=== PATIENT | female | born 1935 | race Caucasian/White ===

== ENCOUNTER 2017-11-26 12:35 | Day surgery (SDC) | payer MEDICARE ==
[~2017-11-26] VITALS: Ht 160 cm; Wt 90.5 kg
[2017-11-26 12:50] VITALS: BP 159/87
[2017-11-26] MEDS ORDERED: FLUO10CA28 PO (13:00)
[2017-11-26] MEDS ORDERED: FURO-150 PO (13:03)
[2017-11-26] MEDS ORDERED: METF850T PO (13:04)
[2017-11-26] MEDS ORDERED: IRBE150T27 PO (13:04)
[2017-11-26] MEDS ORDERED: ACET-812 PO (13:05)
[2017-11-26] MEDS ORDERED: ASPI-611 PO (13:06)
[2017-11-26] MEDS ORDERED: MULT-1085 PO (13:07)
[2017-11-26] MEDS ORDERED: BETA1TAB20 PO (13:07)
[2017-11-26] MEDS ORDERED: fentaNYL/PF 50MCG/1 ML 2ML syringe ONE (13:15)
[2017-11-26] MEDS ORDERED: MIDAZolam 5mg/5ml vial ONE (13:16)
[2017-11-26 13:52] VITALS: BP 154/57
[2017-11-26 13:57] VITALS: BP 137/45
== END 2017-11-26 14:12 | disposition home or self-care (01) ==
LOC: GI LAB 12:35
PROVIDERS: ATTEND Internal Medicine Gastroenterology
DX: K92.1 Melena (principal); E11.9 Type 2 diabetes mellitus without complications; Z79.82 Long term (current) use of aspirin; Z79.84 Long term (current) use of oral hypoglycemic drugs; Z88.2 Allergy status to sulfonamides; Z90.49 Acquired absence of other specified parts of digestive tract; Z96.653 Presence of artificial knee joint, bilateral; Z90.12 Acquired absence of left breast and nipple; Z85.3 Personal history of malignant neoplasm of breast; Z79.899 Other long term (current) drug therapy
CPT/HCPCS: 45330; G0500; J2250; J3010; J7030; A4620

== ENCOUNTER 2021-11-15 09:29 | Outpatient (CLI) | payer MEDICARE ==
[~2021-11-15 09:29] MED LIST: ACET-812 PO; ASPI-611 PO; BETA1TAB20 PO; FLUO10CA28 PO; FURO-150 PO; IRBE150T24 PO; METF850T PO; MULT-1085 PO
[2021-11-15 10:10] LABS: BASOPHILS % (AUTO) 0.7 % (0-1); EOSINOPHILS # (AUTO) 0.1 X10'3 (0-0.9); EOSINOPHILS % (AUTO) 2.1 % (0-6); HEMATOCRIT 37.8 % (35.0-45.0); HEMOGLOBIN 12.1 g/dl (12.0-16.0); LYMPHOCYTES # (AUTO) 1.3 X10'3 (1.1-4.8); MEAN CORPUSCULAR HEMOGLOBIN 27.9 PG (27.0-31.0); MEAN CORPUSCULAR HGB CONC 32.1 g/dL (33.0-36.5); MEAN CORPUSCULAR VOLUME 87.1 FL (78-98); MEAN PLATELET VOLUME 8.3 FL (7.4-10.4); MONOCYTES # (AUTO) 0.4 X10'3 (0-0.9); MONOCYTES % (AUTO) 6.3 % (2-12); NEUTROPHILS # (AUTO) 5.1 X10'3 (1.8-7.7); NEUTROPHILS % (AUTO) 71.9 % (42-75); PLATELET COUNT 240 X10'3 (140-440); RED BLOOD COUNT 4.34 X10'6 (4.20-5.60); RED CELL DISTRIBUTION WIDTH 14.4 % (11.5-14.5); WHITE BLOOD COUNT 7.1 X10'3 (4.5-11.0)
[2021-11-15 10:24] LABS: ALANINE AMINOTRANSFERASE 33 U/L (12-78); ALBUMIN 3.5 G/DL (3.4-5.0); ALKALINE PHOSPHATASE 79 IU/L (46-116); ANION GAP 2 (8-16); ASPARTATE AMINO TRANSFERASE 26 U/L (10-37); BILIRUBIN,TOTAL 0.3 MG/DL (0.1-1.0); BLOOD UREA NITROGEN 21 MG/DL (7-18); BUN/CREATININE RATIO 23.6 (6.6-38.0); CALCIUM 8.9 MG/DL (8.5-10.1); CHLORIDE 103 MMOL/L (99-107); CREATININE 0.89 MG/DL (0.40-0.90); GLUCOSE 216 MG/DL (70-104); POTASSIUM 4.1 MMOL/L (3.5-5.1); SODIUM 134 MMOL/L (135-145); TOTAL PROTEIN 6.9 G/DL (6.4-8.2); eGFR 60 ML/MIN
[2021-11-15 10:27] LABS: APTT 25 SECONDS (22-32)
[2021-11-15] MEDS ORDERED: IODIXANOL 320 MG/ML INFUS..BTL 50ML IV ONE ×2 (11:19)
[2021-11-15] MEDS ORDERED: IODIXANOL 320 MG/ML INFUS..BTL 100ML IV ONE (11:19)
== END 2021-11-15 23:59 | disposition home or self-care (01) ==
LOC: RAD 09:29
PROVIDERS: ATTEND Internal Medicine Cardiovascular Disease
DX: I65.23 Occlusion and stenosis of bilateral carotid arteries (principal); K57.10 Diverticulosis of small intestine without perforation or abscess without bleeding; K76.0 Fatty (change of) liver, not elsewhere classified; I71.4 Abdominal aortic aneurysm, without rupture; M47.819 Spondylosis without myelopathy or radiculopathy, site unspecified; E27.8 Other specified disorders of adrenal gland; K86.89 Other specified diseases of pancreas; I70.0 Atherosclerosis of aorta; I25.10 Atherosclerotic heart disease of native coronary artery without angina pectoris; E04.9 Nontoxic goiter, unspecified; I35.0 Nonrheumatic aortic (valve) stenosis; R06.02 Shortness of breath; I65.29 Occlusion and stenosis of unspecified carotid artery; Z20.822 Contact with and (suspected) exposure to COVID-19; Z90.710 Acquired absence of both cervix and uterus; Z90.49 Acquired absence of other specified parts of digestive tract
CPT/HCPCS: 36415; 71046; 71275; 74174; 80053; 85025; 85610; 85730; 87635; 93880; 94010; 94727; 94729; C9803; Q9967

== ENCOUNTER 2021-12-07 07:30 | Inpatient (IN) | payer MEDICARE ==
[2021-12-04 10:53] LABS: CLARITY,URINE CLEAR (Clear); COLOR,URINE YELLOW (Yellow); GLUCOSE, URINE NEGATIVE (Neg); KETONES,URINE NEGATIVE (Neg); LEUKOCYTE ESTERASE ,URINE NEGATIVE (Neg); NITRITES, URINE NEGATIVE (Neg); OCCULT BLOOD,URINE NEGATIVE (Neg); PH,URINE 5.5 (4.8-8.0); PROTEIN,URINE NEGATIVE (Neg); UROBILINOGEN,URINE 0.2 E.U/dL (0.2-1.0)
[2021-12-04 10:54] LABS: BASOPHILS # (AUTO) 0.1 X10'3 (0-0.2); EOSINOPHILS # (AUTO) 0.1 X10'3 (0-0.9); EOSINOPHILS % (AUTO) 1.6 % (0-6); LYMPHOCYTES # (AUTO) 1.4 X10'3 (1.1-4.8); LYMPHOCYTES % (AUTO) 19.9 % (21-51); MEAN CORPUSCULAR HEMOGLOBIN 28.4 PG (27.0-31.0); MEAN CORPUSCULAR HGB CONC 32.8 g/dL (33.0-36.5); MEAN CORPUSCULAR VOLUME 86.4 FL (78-98); MEAN PLATELET VOLUME 8.2 FL (7.4-10.4); MONOCYTES # (AUTO) 0.6 X10'3 (0-0.9); MONOCYTES % (AUTO) 8.1 % (2-12); NEUTROPHILS # (AUTO) 4.8 X10'3 (1.8-7.7); NEUTROPHILS % (AUTO) 69.4 % (42-75); PRE OP HEMATOCRIT 38.4 % (35.0-45.0); PRE OP HEMOGLOBIN 12.6 g/dL (12.0-16.0); PRE OP PLATELET COUNT 259 X10'3 (140-440); RED BLOOD COUNT 4.44 X10'6 (4.20-5.60); RED CELL DISTRIBUTION WIDTH 14.5 % (11.5-14.5)
[2021-12-04 10:56] LABS: UA COLLECTION TYPE CLN CATCH MIDSTREAM
[2021-12-04 11:08] LABS: PRE OP PROTIME 10.5 SECONDS (9.0-12.0)
[2021-12-04 11:18] LABS: ALBUMIN 3.6 G/DL (3.4-5.0); ALKALINE PHOSPHATASE 83 IU/L (46-116); BLOOD UREA NITROGEN 23 MG/DL (7-18); CALCIUM 9.5 MG/DL (8.5-10.1); CHLORIDE 101 MMOL/L (99-107); CREATININE 0.96 MG/DL (0.40-0.90); PRE OP ALT 37 U/L (30-65); PRE OP ANION GAP 11 (8-16); PRE OP AST 24 U/L (10-37); PRE OP BILIRUB, TOTAL 0.4 MG/DL (0.0-1.0); PRE OP GLUCOSE 139 MG/DL (70-104); PRE OP POTASSIUM 4.4 MMOL/L (3.4-5.1); PRE OP SODIUM 137 MMOL/L (135-145); TOTAL CARBON DIOXIDE 24.6 MMOL/L (24-32); TOTAL PROTEIN 7.1 G/DL (6.4-8.2); eGFR 55 ML/MIN
[2021-12-07] VITALS (20 sets, daily range): BP systolic 126–176; BP diastolic 55–75
[~2021-12-07] VITALS: Ht 158.1 cm; Wt 88.9 kg
[~2021-12-07 07:30] MED LIST changes: -IRBE150T24 PO; +OLME20TA14 PO; +aspirin 325mg tablet PO ONE; +cefazolin/dext.iso 2gm/50ml IV ONE; +famotidine 20mg tablet PO ONE; +nitroPRUSSIDE 0.2mg/mL in NS 100 ML IV SCH; +ondansetron/PF 4mg/2ml inj IV PRN; +phenylephrine 50 MG in NS 250ml IVPB IV SCH; +protamine sulfate 10mg/ml inj. ONE; +ringers solution, lacted 1,000 ML IV SCH; +vancomycin 1,500 MG in NS 300ml IV soln IV ONE
[2021-12-07] MEDS ORDERED: morphine 2 MG/ML inj. syringe IV PRN (09:50)
[2021-12-07] MEDS ORDERED: meperidine/PF 25mg/ml syringe IV PRN ×3 (09:50)
[2021-12-07] MEDS ORDERED: ondansetron/PF 4mg/2ml inj IV PRN ×2 (09:50→12:25)
[2021-12-07] MEDS ORDERED: proCHLORperazine 10 MG/2 ml inj IV PRN ×2 (09:50→12:25)
[2021-12-07] MEDS ORDERED: ringers solution, lacted 1,000 ML IV SCH (09:50)
[2021-12-07] MEDS ORDERED: morphine 4 MG/ML inj SYRINge IV PRN (09:50)
[2021-12-07] MEDS ORDERED: iohexol 350 MG/ML 50ML vial IV ONE (10:52)
[2021-12-07] MEDS ORDERED: iohexol 350MG/ML 100ml bottle IV ONE (10:52)
[2021-12-07] MEDS ORDERED: heparin 1,000 UNITS/NS 500ml 500 ML ONE (10:53)
[2021-12-07] MEDS ORDERED: LIDOcaine 1% (10mg/ml)w/preservative inj. 20ml MDV ONE (10:55)
[2021-12-07] MEDS ORDERED: FENTANYL CITRATE/PF 50 MCG/1 ML VIAL ONE (11:03)
[2021-12-07] MEDS ORDERED: midazolam 1 mg/ML 2ml injection ONE (11:04)
[2021-12-07] MEDS ORDERED: propofol inj 20 ML IV ONE (11:04)
[2021-12-07] MEDS ORDERED: neostigmine methylsulfate 1 MG/ML 10ml vial ONE (11:09)
[2021-12-07] MEDS ORDERED: sevoflurane 250ml liquid IH ONE (11:09)
[2021-12-07] MEDS ORDERED: heparin 1,000unit/ml 10ml vial 10 ML ONE (11:26)
[2021-12-07] MEDS ORDERED: insulin regular, human U-100 3ml vial - multi-dose SQ SCH (12:25)
[2021-12-07] MEDS ORDERED: pantoprazole 40mg Tablet.DR PO PRN (12:25)
[2021-12-07] MEDS ORDERED: HYDROcodone/acetaminophen 5mg/325mg tablet PO PRN (12:25)
[2021-12-07] MEDS ORDERED: dextrose 50%-water 50ml dispensing syringe IV PRN ×2 (12:25)
[2021-12-07] MEDS ORDERED: MESSAGE TO PHARMACY PO ONE (12:25)
[2021-12-07] MEDS ORDERED: ALPRAZolam 0.25mg tablet PO PRN (12:25)
[2021-12-07] MEDS ORDERED: normal saline 1000ml 1,000 ML IV SCH (12:25)
[2021-12-07] MEDS ORDERED: insulin Lispro (HumaLOG) vial - multi-dose SQ SCH (12:25)
[2021-12-07] MEDS ORDERED: DEXTROSE 15 GM of carb/4 tabs (each vial/BOTTLE has 4 tablets) PO PRN ×2 (12:25)
[2021-12-07] MEDS ORDERED: hydrALAZINE 20mg/ml inj. IV PRN (12:25)
[2021-12-07] MEDS ORDERED: glucagon, human recombinant 1mg kit SUBCUT PRN (12:25)
[2021-12-07] MEDS ORDERED: diphenhydrAMINE 25mg capsule PO PRN (12:25)
[2021-12-07] MEDS ORDERED: docusate sod 100mg capsule PO PRN (12:25)
[2021-12-07] MEDS ORDERED: labetalol 20mg/4ml (5mg/ml) syringe IV PRN (12:25)
--- NOTE | 2021-12-07 12:38 | NUR ---
Received from OR via BED IN STABLE CONDITION , accompanied by Anesthesiologist and PATTERN GATER report given by PATTERN GATER AND Anesthesiolgist. Addendum: 12/07/21 at 1309 by Gretchen Lynch RN Amended: Links added.
--- NOTE | 2021-12-07 14:13 | NUR ---
PATIENT DISCHARGED FROM PACU IN STABLE CONDITION AFTER REPORT GIVEN TO RN TAKING OVER PATIENTS CARE. PATIENT TRANSFERRED TO ROOM 3017B ON MONITOR VIA BED WITH RN. Addendum: 12/07/21 at 1424 by Gretchen Lynch RN Amended: Links added.
[2021-12-07] MEDS: ceFAZolin 1GM/D5W- ADD-VANTAGE 50 ML IV SCH (15:32)
[2021-12-07] MEDS: sod chloride 0.9% 10ml flush syringe IV SCH (16:00)
--- NOTE | 2021-12-07 18:38 | NUR ---
[place] documentation: I have reviewed and agree with all interventions, assessments performed and documented by MARILU Cisneros II.
--- NOTE | 2021-12-07 18:40 | NUR ---
Problems reprioritized. Patient report given, questions answered & plan of care reviewed with JESÚS Fiore.
[2021-12-07] MEDS: acetaminophen 325mg tablet PO PRN (20:52)
[2021-12-07] MEDS: vancomycin/NS 1 GM ADD-VANTAGE 250 ML IV SCH (20:52)
[2021-12-07] MEDS ORDERED: insulin glargine (Lantus) pen - multi-dose SQ SCH (21:00)
--- NOTE | 2021-12-07 22:00 | NUR ---
BG 201/
--- NOTE | 2021-12-07 22:00 | NUR ---
BG 201. Pt stated she does not want insulin. PT educated about risk and benefits. Pt understand and is capable of making self decision. No impairment in judgement. Stated intent to recheck BG in 1 hour. Upon attempt to reassess pt stated she did not want BG recheck. Pt educated in both instances
[2021-12-08 02:00] VITALS: BP 124/56
[2021-12-08 06:00] VITALS: BP 147/57
[2021-12-08 06:32] LABS: BASOPHILS % (AUTO) 0.3 % (0-1); EOSINOPHILS # (AUTO) 0.2 X10'3 (0-0.9); HEMATOCRIT 34.1 % (35.0-45.0); HEMOGLOBIN 11.4 g/dl (12.0-16.0); LYMPHOCYTES # (AUTO) 1.3 X10'3 (1.1-4.8); LYMPHOCYTES % (AUTO) 14.6 % (21-51); MEAN CORPUSCULAR HEMOGLOBIN 29.3 PG (27.0-31.0); MEAN CORPUSCULAR HGB CONC 33.4 g/dL (33.0-36.5); MEAN CORPUSCULAR VOLUME 87.7 FL (78-98); MEAN PLATELET VOLUME 8.2 FL (7.4-10.4); MONOCYTES % (AUTO) 10.8 % (2-12); NEUTROPHILS # (AUTO) 6.5 X10'3 (1.8-7.7); NEUTROPHILS % (AUTO) 72.3 % (42-75); PLATELET COUNT 202 X10'3 (140-440); RED BLOOD COUNT 3.89 X10'6 (4.20-5.60); RED CELL DISTRIBUTION WIDTH 14.7 % (11.5-14.5)
[2021-12-08 07:16] LABS: ALANINE AMINOTRANSFERASE 30 U/L (12-78); ALBUMIN 3.1 G/DL (3.4-5.0); ALKALINE PHOSPHATASE 77 IU/L (46-116); ANION GAP 5 (8-16); ASPARTATE AMINO TRANSFERASE 25 U/L (10-37); BILIRUBIN,TOTAL 0.5 MG/DL (0.1-1.0); BLOOD UREA NITROGEN 13 MG/DL (7-18); BUN/CREATININE RATIO 14.1 (6.6-38.0); CALCIUM 8.6 MG/DL (8.5-10.1); CHLORIDE 106 MMOL/L (99-107); CREATININE 0.92 MG/DL (0.40-0.90); GLUCOSE 120 MG/DL (70-104); MAGNESIUM 2.1 MG/DL (1.5-2.4); POTASSIUM 4.3 MMOL/L (3.5-5.1); SODIUM 139 MMOL/L (135-145); TOTAL CARBON DIOXIDE 27.9 MMOL/L (24-32); TOTAL PROTEIN 6.1 G/DL (6.4-8.2); eGFR 58 ML/MIN
[2021-12-08] MEDS ORDERED: FLUoxetine 20mg capsule PO SCH ×2 (08:00)
[2021-12-08] MEDS ORDERED: multivitamins, therapeutics tablet PO SCH (08:00)
[2021-12-08] MEDS ORDERED: VIT C PO SCH (08:00)
[2021-12-08] MEDS ORDERED: ZINC PO SCH (08:00)
[2021-12-08] MEDS ORDERED: VIT E PO SCH (08:00)
[2021-12-08] MEDS ORDERED: losartan 50mg tablet PO SCH (08:00)
[2021-12-08] MEDS ORDERED: VIT A PO SCH (08:00)
[2021-12-08] MEDS ORDERED: furosemide 20MG tablet PO SCH (08:00)
[2021-12-08] MEDS ORDERED: COPPER PO SCH (08:00)
[2021-12-08] MEDS: ceFAZolin 1GM/D5W- ADD-VANTAGE 50 ML IV SCH ×2 (08:17)
[2021-12-08] MEDS: sod chloride 0.9% 10ml flush syringe IV SCH ×2 (08:20)
[2021-12-08] MEDS ORDERED: aspirin 81mg tab.chew PO SCH (08:30)
[2021-12-08] MEDS: acetaminophen 325mg tablet PO PRN (08:36)
[2021-12-08] MEDS: vancomycin/NS 1 GM ADD-VANTAGE 250 ML IV SCH (09:40)
[2021-12-08 11:00] VITALS: BP 127/48
--- NOTE | 2021-12-08 14:00 | NUR ---
[place] documentation: I have reviewed and agree with all interventions, assessments performed and documented by MARILU Cisneros II.
--- NOTE | 2021-12-08 14:19 | NUR ---
pt stable for d/c per md orders all d/c ppwk reviewed with patient and patient . PIV was removed - pt tolerated well. Tele box 23 was removed and handed back to tele manager monitoring. No new RX. All personal belongings were sent with patient upon d/c. Pt was wheeled down in W/C by nursing staff to private vehicle where spouse was waiting. All questions, comment, and concerns were answered at this time and patient did not have any other questions. Re-interated the importance of rescheduling vs cancelling appts and she verbalized understanding.
[2021-12-09] MEDS ORDERED: FLUoxetine 20mg capsule PO SCH (08:00)
== END 2021-12-08 13:10 | disposition home or self-care (01) | DRG 267 ==
LOC: PAS IN 07:30 → EDSTATUS 09:30 → PCU 3S 14:19
PROVIDERS: ADMIT Internal Medicine Cardiovascular Disease; ATTEND Internal Medicine Cardiovascular Disease
PROC: B41D1ZZ Fluoroscopy of Aorta and Bilateral Lower Extremity Arteries using Low Osmolar Contrast (ICD-10-PCS; 2021-12-07)
PROC: X2RF332 Replacement of Aortic Valve using Zooplastic Tissue, Rapid Deployment Technique, Percutaneous Approach, New Technology Group 2 (ICD-10-PCS; principal; 2021-12-07 11:09)
DX: I35.0 Nonrheumatic aortic (valve) stenosis (principal); Z00.6 Encounter for examination for normal comparison and control in clinical research program; E11.9 Type 2 diabetes mellitus without complications; I49.3 Ventricular premature depolarization; I10 Essential (primary) hypertension; I49.1 Atrial premature depolarization; M19.90 Unspecified osteoarthritis, unspecified site; E66.9 Obesity, unspecified; F32.A Depression, unspecified; F41.9 Anxiety disorder, unspecified; I87.2 Venous insufficiency (chronic) (peripheral); Z85.3 Personal history of malignant neoplasm of breast; Z68.35 Body mass index [BMI] 35.0-35.9, adult
CPT/HCPCS: 33361; 36415; 71045; 76937; 80053; 81003; 82948; 83036; 83735; 83880; 85025; 85347; 85610; 85730; 86885; 86900; 86901; 86920; 87081; 87635; 93005; 93308; A4618; A6258; A6449; C1756; C1760; C1769; C1894; G0378; J0690; J1644; J1815; J2250; J2370; J2704; J2710; J2720; J3010; J3370; J3490; J7030; J7040; J7050; J7060; J7120; Q9967